=== PATIENT | female | born 1990 | race Caucasian/White ===

== ENCOUNTER 2023-09-30 21:42 | Emergency (ER) | payer OTHER, SELFPAY ==
[2023-09-30 22:04] VITALS: BP 128/77; PULSE 90; RESP 18; TEMP 36.9; O2SAT 96; BMI 30.4
--- NOTE | 2023-09-30 23:10 | ED_ITS ---
HPI - Nausea/Vomiting/Diarrhea General Chief complaint: Nausea/Vomiting/Diarrhea Stated complaint: POSS COVID, ABDOMINAL PAIN Time Seen by Provider: 09/30/23 22:12 Source: patient Mode of arrival: walk-in Limitations: no limitations History of Present Illness HPI Narrative: This 33-year-old female presents for evaluation of left upper quadrant abdominal pain that has been ongoing for over a year and goes across her abdomen to the right upper quadrant. She has been seen by her physician and told she may have an ulcer on was placed on a proton pump inhibitor. She also thinks that she may have Covid as she was exposed to Covid and has had nausea vomiting and diarrhea today. She has not had a fever or cough. She has no chest pain or shortness of breath. She denies the possibility of . Related Data Home Medications Medication Instructions Recorded Confirmed aripiprazole 5 mg tablet 5 mg PO DAILY 09/30/23 09/30/23 bupropion HCl 150 mg tablet,12 hr 150 mg PO Q12H 09/30/23 09/30/23 sustained-release Allergies Allergy/AdvReac Type Severity Reaction Status Date / Time No Known Drug Allergies Allergy Verified 09/30/23 22:09 Review of Systems ROS Status of ROS 10 or more systems reviewed and unremark able except as noted in history and below [facility] Smoking status: Current every day smoker Exam Narrative Exam Narrative: Nurses note and vital signs reviewed and patient is not hypoxic. General: The patient appears well and in no apparent distress. Patient is resting comfortably on cart. Skin: Warm, dry, no pallor noted. There is no rash noted. Head: Normocephalic, atraumatic Eye: Normal conjunctiva, no drainage, EOMI. PERRL. No scleral icterus Ears, Nose, Mouth, and Throat: oral mucosa is moist. Cardiovascular: Regular Rate and Rhythm, pulses are brisk and equal bilaterally Respiratory: Patient is in no distress, no accessory muscle use, lungs are clear to auscultation, no wheezing, rales or rhonchi Back: non-tender, no CVA tenderness bilaterally to percussion. GI: Normal bowel sounds, no tenderness to palpation, no masses appreciated. No rebound, guarding, or rigidity noted. NO reproducible tenderness Musculoskeletal: The patient has no evidence of calf tenderness, no pitting edema, symmetrical pulses noted bilaterally Neurological: A&O x4, normal speech Psychiatric: Cooperative Constitutional Vital Signs, click to edit/add: Last Vital Signs Temp 98.4 F 09/30/23 22:04 Pulse 90 09/30/23 22:04 Resp 18 09/30/23 22:04 BP 128/77 09/30/23 22:04 Pulse Ox 96 09/30/23 22:04 O2 Del Method Room Air 09/30/23 22:04 Course Vital Signs Vital signs: Vital Signs Temperature 98.4 F 09/30/23 22:04 Pulse Rate 90 09/30/23 22:04 Respiratory Rate 18 09/30/23 22:04 Blood Pressure 128/77 09/30/23 22:04 Pulse Oximetry 96 09/30/23 22:04 Oxygen Delivery Method Room Air 09/30/23 22:04 Temperature 98.4 F 09/30/23 22:04 Pulse Rate 90 09/30/23 22:04 Respiratory Rate 18 09/30/23 22:04 Blood Pressure 128/77 09/30/23 22:04 Pulse Oximetry 96 09/30/23 22:04 Oxygen Delivery Method Room Air 09/30/23 22:04 MDM - Nausea/Vomiting/Diarrhea MDM Narrative Medical decision making narrative: 33-year-old female presents for evaluation of left upper quadrant abdominal pain that has been ongoing for a year. She has been told it may be an ulcer. She is concerned that she has covered 19. She has been exposed to Covid 19 by her son's father. She has had nausea and diarrhea earlier today. She is well-appearing with normal vital signs. She has not had a fever cough. An IV was placed and she was medicated with IV fluids, pepcid, Toradol and Zofran. She has a normal white count and hemoglobin. All of her electrolytes are normal. On reevaluation she is feeling better. She'll be discharged home with a note for work. Lab Data Labs: Lab Results 09/30/23 09/30/23 Range/Units 22:18 23:15 WBC 7.9 (4.0-11.0) 10^3/uL RBC 4.16 L (4.20-5.40) 10^6/uL Hgb 12.5 (12.0-16.0) g/dL Hct 37.6 (36.0-48.0) % MCV 90.4 (81.0-99.0) fL MCH 30.0 (26.7-34.0) pg MCHC 33.2 (29.9-35.2) g/dL RDW 13.0 (11.0-15.0) % Plt Count 323 (150-450) 10^3/uL MPV 8.8 L (9.5-13.5) fL Neut % (Auto) 64.3 (43.0-75.0) % Lymph % (Auto) 27.1 (20.5-60.0) % [place] % (Auto) 6.3 (1.7-12.0) % Eos % (Auto) 1.5 (0.9-7.0) % Baso % (Auto) 0.5 (0.2-2.0) % Neut # (Auto) 5.1 (1.4-6.5) 10^3/uL Lymph # (Auto) 2.1 (1.2-3.8) 10^3/uL [place] # (Auto) 0.5 (0.3-0.8) 10^3/uL Eos # (Auto) 0.1 (0.0-0.7) 10^3/uL Baso # (Auto) 0.0 (0.0-0.1) 10^3/uL Abs Immat Gran (auto) 0.02 (0.00-0.03) 10^3/uL Imm/Tot Granulo (auto) 0.3 (0.0-0.5) % Sodium 138 (136-145) mmol/L Potassium 3.8 (3.5-5.1) mmol/L Chloride 104 (98-107) mmol/L Carbon Dioxide 27.8 (21.0-32.0) mmol/L Anion Gap 10.0 BUN 8.0 (7.0-18.0) mg/dL Creatinine 0.76 (0.55-1.02) mg/dL Est GFR ( Amer) >60 (>=60) Est GFR (Non-Af Amer) >60 (>=60) BUN/Creatinine Ratio 10.5 Glucose 98 (74-106) mg/dL Lactate 0.7 (0.4-2.0) mmol/L Calcium 9.1 (8.5-10.1) mg/dL Total Bilirubin 0.4 (0.2-1.0) mg/dL AST 19 (15-37) U/L ALT 39 (14-59) U/L Alkaline Phosphatase 65 (46-116) U/L Total Protein 7.6 (6.4-8.2) g/dL Albumin 3.7 (3.4-5.0) g/dL Globulin 3.9 g/dL Albumin/Globulin Ratio 0.9 SARS-CoV-2 (PCR) Negative (NEGATIVE) Influenza Type A Ag Negative Influenza Type B Ag Negative Discharge Plan Discharge Chief Complaint: Nausea/Vomiting/Diarrhea Clinical Impression: Gastroenteritis Patient Disposition: Home, Self-Care Time of Disposition Decision: 00:45 Condition: Good Prescriptions / Home Meds: No Action aripiprazole 5 mg tablet 5 mg PO DAILY bupropion HCl 150 mg tablet sustained-release 12 hr 150 mg PO Q12H Instructions: Gastroenteritis (DC), Acute Diarrhea (ED) Stand Alone Forms: Portal Instructions Referrals: Physician,Non-Staff, MD [Primary Care Provider] - 1 week
[2023-09-30 23:24] LABS: Basophils Percent Auto 0.5 % (0.2-2.0); Eosinophils Absolute Auto 0.1 10^3/uL (0.0-0.7); Eosinophils Percent Auto 1.5 % (0.9-7.0); Hematocrit 37.6 % (36.0-48.0); Hemoglobin 12.5 g/dL (12.0-16.0); Immature Granulocytes Abs Auto 0.02 10^3/uL (0.00-0.03); Immature Granulocytes Pct Auto 0.3 % (0.0-0.5); Lymphocytes Absolute Auto 2.1 10^3/uL (1.2-3.8); Lymphocytes Percent Auto 27.1 % (20.5-60.0); Mean Corpuscular HGB Conc 33.2 g/dL (29.9-35.2); Mean Corpuscular Volume 90.4 fL (81.0-99.0); Mean Platelet Volume 8.8 fL (9.5-13.5); Monocytes Absolute Auto 0.5 10^3/uL (0.3-0.8); Monocytes Percent Auto 6.3 % (1.7-12.0); Neutrophils Absolute Auto 5.1 10^3/uL (1.4-6.5); Neutrophils Percent Auto 64.3 % (43.0-75.0); Platelet Count 323 10^3/uL (150-450); Red Blood Count 4.16 10^6/uL (4.20-5.40); White Blood Count 7.9 10^3/uL (4.0-11.0)
[2023-09-30] MEDS: FAMOTIDINE/PF 20 MG/2 ML VIAL IV (23:32)
[2023-09-30] MEDS: ONDANSETRON PF 4 MG/2 ML VIAL IV (23:32)
[2023-09-30] MEDS: 0.9 % SODIUM CHLORIDE 1,000 ML 1000 ML IV (23:32)
[2023-09-30] MEDS: KETOROLAC TROMETHAMINE 30 MG/ML VIAL IVP (23:32)
[2023-09-30 23:38] LABS: Alanine Aminotransferase 39 U/L (14-59); Albumin Globulin Ratio 0.9; Albumin Level 3.7 g/dL (3.4-5.0); Alkaline Phosphatase 65 U/L (46-116); Aspartate Amino Transferase 19 U/L (15-37); BUN Creatinine Ratio 10.5; Bilirubin Total 0.4 mg/dL (0.2-1.0); Calcium 9.1 mg/dL (8.5-10.1); Carbon Dioxide 27.8 mmol/L (21.0-32.0); Chloride 104 mmol/L (98-107); Estimated GFR (African America >60 (>=60); Estimated GFR (Non-African Ame >60 (>=60); Globulin 3.9 g/dL; Glucose 98 mg/dL (74-106); Potassium 3.8 mmol/L (3.5-5.1); Sodium 138 mmol/L (136-145); Total Protein 7.6 g/dL (6.4-8.2)
[2023-09-30 23:41] LABS: Lactate/Lactic Acid 0.7 mmol/L (0.4-2.0)
--- NOTE | 2023-09-30 23:49 | PC.NURSE ---
States has this upper abdominal pain for 4 years. Happens usually once a month points to [facility]. States Dr says it is an ulcer.
[2023-10-01 00:09] LABS: Influenza Virus A Antigen Negative; Influenza Virus B Antigen Negative; Internal Control Within Normal Limits; SARS-CoV-2 Ag NEGATIVE (NEGATIVE)
[2023-10-01 01:02] VITALS: BP 118/80; PULSE 76; RESP 16; O2SAT 100
[2023-10-01 15:49] LABS: SARS-CoV-2 NAA NOT DETECTED (NOT DETECTE)
== END 2023-10-01 01:08 | disposition home or self-care (01) ==
PROVIDERS: Emergency Provider Emergency Medicine
DX: K52.9 Noninfective gastroenteritis and colitis, unspecified (principal); F17.210 Nicotine dependence, cigarettes, uncomplicated; Z79.899 Other long term (current) drug therapy; Z20.822 Contact with and (suspected) exposure to COVID-19
CPT/HCPCS: 36415; 80053; 83605; 85025; 87635; 87804; 87811; 96374; 96375; 99284